=== PATIENT | female | born 1970 | race Caucasian/White ===

== ENCOUNTER → 2017-06-25 | Outpatient (CLI) | payer BC ==
[~2017-06-25] MED LIST: AMIT100T2 PO; CELE100C PO; CYAN10002 IM; DONE10TA12 PO; FENT1DIS85 TOP; HYDR-4383 PO; MULT1CAP6 PO; OXYC1TAB3 PO; PROP1TAB PO; SUMA6KIT2; TIZA4CAP PO; TOPI100T34 PO; VENL150C56 PO; VITACAP26 PO; VITAMIN D PO; [UNRECOGNIZED DRUG - OTHER] INJ
--- NOTE | 2017-06-25 16:19 | DIAGNOSTIC IMAGING REPORT ---
MRI OF THE RIGHT SHOULDER WITHOUT CONTRAST CLINICAL HISTORY: Right shoulder pain and decreased range of motion. COMPARISON STUDY: No previous studies for comparison. TECHNIQUE: Utilizing a 1.5 Becca magnet and dedicated coil, multiplanar, multi echo imaging of the right shoulder was performed without intravenous or intra-articular contrast. FINDINGS: This exam is mildly compromised by diminished ocqrtq-bb-[id number] ratio. There is moderate osteoarthritis of the right acromioclavicular joint with subacromial spurring and mild osteoarthritis of the glenohumeral joint. No fracture is identified. There is no suspicious marrow replacement. There is mild subchondral cystic change of the greater tuberosity. The proximal long head of biceps tendon is intact. The posterior superior glenoid labrum is slightly truncated and irregular. This favors a labral tear which is suboptimally assessed on this nonarthrogram exam. There is a moderate amount of fluid within the subacromial/subdeltoid bursa. There is tendinopathy with high-grade partial-thickness tear of the anterior fibers of distal supraspinatus without tendon retraction or muscular atrophy. There is mild tendinopathy of infraspinatus. There is no full-thickness rotator cuff tear identified on this exam although the amount of fluid within the subacromial/subdeltoid bursa raises the possibility of an occult full-thickness tear. No joint effusion is present. IMPRESSION: 1. Tendinopathy with high-grade partial-thickness tear of the distal anterior fibers of supraspinatus without tendon retraction or muscular atrophy. Moderate amount of fluid within the subacromial/subdeltoid bursa raises the possibility of an occult full-thickness rotator cuff tear. 2. Tendinopathy of infraspinous. 3. Moderate osteoarthritis of the acromioclavicular joint with subacromial spurring. 4. Truncated irregular posterior superior labrum which suggests a labral tear. Electronically signed by: Phillip Swanson M.D. 06/25/2017 4:18 PM Dictated Date/Time: 06/25/2017 4:11 PM
== END | disposition home or self-care (01) ==
LOC: C.MRI 14:22
PROVIDERS: ATTEND Physician Assistant Medical
DX: M79.1 Myalgia (principal); G89.4 Chronic pain syndrome; M25.511 Pain in right shoulder; M75.51 Bursitis of right shoulder

== ENCOUNTER → 2017-07-03 | Outpatient (CLI) | payer BC ==
--- NOTE | 2017-07-03 17:37 | DIAGNOSTIC IMAGING REPORT ---
LUMBAR SPINE MRI HISTORY: Low back pain. Radiating down right leg. HERNIATED LUMBAR INTERVERTEBRA DISC TECHNIQUE: Multiplanar multisequence MRI of the lumbar spine was performed without the use of contrast. COMPARISON: None. FINDINGS: For the purpose of the report the L5-S1 disc space will be located on axial image 27 of 30. There is 2 mm of anterolisthesis of L4 and L5. Remaining vertebral body heights are well aligned. There are few small Schmorl's nodes within the superior endplates of L1-L3. Mild disc space narrowing within the lower thoracic spine. A 6 mm hemangioma at the T10 vertebral body. The conus terminates at L1. Mild disc space narrowing at L2-L3 and L4-L5. Mild lumbar subcutaneous edema. A 1 cm T2 hyperintense, T1 hypointense lesion within the right kidney. This likely represents a cyst. Moderate facet degenerative changes at L4-5 and and mild facet degenerative changes at L5-S1. No fractures within the lumbar spine. L5-S1 disc desiccation. A 5 mm T2 hyperintense lesion within the lower pole the left kidney also favors a cyst. L1-L2: No significant central canal or neural foraminal narrowing. L2-L3: No significant central canal or neural foraminal narrowing. Tiny broad-based posterior disc bulge. L3-L4: No significant central canal or neural foraminal narrowing. L4-L5: Small broad-based posterior disc bulge with ligamentum and facet hypertrophy resulting and [id number] central canal and mild bilateral neural foraminal narrowing. There is also a 5 mm right-sided synovial cyst which results in mild impression upon the right posterior thecal sac. L5-S1: Small focal left paracentral disc extrusion demonstrating inferior subligamentous migration. This abuts but does not displace the transiting left S1 nerve root. No significant central canal narrowing. Mild bilateral neural foraminal narrowing due to the mild facet hypertrophy. IMPRESSION: 1. Ahbq-to-sqzoioiy central canal narrowing at L4-L5 as described above. There is associated grade I anterolisthesis at this level and moderate facet osteoarthritis. There is also a 5 mm right-sided synovial cyst which results in moderate impression upon the right posterior thecal sac. 2. Small left paracentral disc extrusion at L5-S1 demonstrating inferior subligamentous migration. This abuts but does not displace the transiting left S1 nerve root. Electronically signed by: Bharat Edmonds M.D. 07/03/2017 5:36 PM Dictated Date/Time: 07/03/2017 5:27 PM
== END | disposition home or self-care (01) ==
LOC: C.MRIBC 16:19
PROVIDERS: ATTEND Pain Medicine Interventional Pain Medicine
DX: M51.26 Other intervertebral disc displacement, lumbar region (principal)

== ENCOUNTER → 2017-07-24 | Day surgery (SDC) | payer BC ==
[2017-07-16 15:36] VITALS: Ht 165.1 cm; Wt 122.1 kg
[2017-07-16 15:47] LABS: MEAN CELL VOLUME 93.1 fL (80-100); MEAN CORPUSCULAR HEMOGLOBIN 30.6 pg (25-34); MEAN CORPUSCULAR HGB CONC 32.9 g/dl (32-36); MEAN PLATELET VOLUME 9.5 fL (7.4-10.4); PLATELET COUNT 416 K/uL (130-400); RED BLOOD COUNT 4.51 M/uL (4.2-5.4); WHITE BLOOD COUNT 9.43 K/uL (4.8-10.8)
[2017-07-16 16:00] LABS: BUN/CREATININE RATIO 7.5 (10-20); CREATININE 1.1 mg/dl (0.60-1.20); POTASSIUM 4.2 mmol/L (3.5-5.1)
[2017-07-16 16:01] LABS: INR 0.9 (0.9-1.1); PARTIAL THROMBOPLASTIN RATIO 1.1
--- NOTE | 2017-07-16 16:14 | PAT Medication Instructions ---
Service Date Jul 16, 2017. Current Home Medication List Amitriptyline Hcl (Elavil), 100 MG PO QPM Donepezil Hydrochloride (Aricept), 10 MG PO QAM Fentanyl (Fentanyl), 1 DOSE TOP Q2DAYS Multiple Vitamins W/ Minerals (Multi For Her), 1 TAB PO QAM Oxycodone Ir (Roxicodone Ir), 10 MG PO 5XDAY Propranolol (Inderal), 60 MG PO TID Tizanidine (Zanaflex), 4 MG PO TID PRN for RN Topiramate (Topamax), 100 MG PO QPM Venlafaxine Hcl (Effexor Extended Rel), 150 MG PO QAM Vitamins C & E (Vitamin C), 1 TAB PO QAM [Vitamiin B12], 1 DOSE INJ [id number] [Vitamin D], 2 TAB PO QAM Medication Instructions For Your Scheduled Surgery -Continue as directed: [Vitamiin B12], 1 DOSE INJ [id number] - Hold the following medications the morning of surgery: [Vitamin D], 2 TAB PO QAM Vitamins C & E (Vitamin C), 1 TAB PO QAM Venlafaxine Hcl (Effexor Extended Rel), 150 MG PO QAM Tizanidine (Zanaflex), 4 MG PO TID PRN for RN Multiple Vitamins W/ Minerals (Multi For Her), 1 TAB PO QAM Fentanyl (Fentanyl), 1 DOSE TOP Q2DAYS - Take the following medications the morning of surgery with a sip of water: Propranolol (Inderal), 60 MG PO TID Oxycodone Ir (Roxicodone Ir), 10 MG PO 5XDAY (can be taken up to four hours before surgery) Donepezil Hydrochloride (Aricept), 10 MG PO QAM - Take the following medications as scheduled the night before surgery: Topiramate (Topamax), 100 MG PO QPM Propranolol (Inderal), 60 MG PO TID Amitriptyline Hcl (Elavil), 100 MG PO QPM Tizanidine (Zanaflex), 4 MG PO TID PRN for RN If you have any questions please call us at [phone] or [phone] or [phone]
--- NOTE | 2017-07-16 17:02 | DIAGNOSTIC IMAGING REPORT ---
CHEST PREADMISSION(PA/LAT) CLINICAL HISTORY: Preoperative chest COMPARISON STUDY: No previous studies for comparison. FINDINGS: The cardiac and mediastinal contours are normal. There is no evidence of focal pulmonary consolidation. There is no evidence of failure. No pleural effusions are visualized.[ IMPRESSION: No active disease in the chest. Electronically signed by: Justin Spain M.D. 07/16/2017 5:00 PM Dictated Date/Time: 07/16/2017 5:00 PM
[~2017-07-24] VITALS: Ht 165.1 cm; Wt 122.1 kg
[~2017-07-24] MED LIST changes: +ATROPINE SULFATE 0.1 MG/ML 5ML SYR IV PRN; +BUPIVACAINE/EPINEPHRINE 0.25% 1:200,000 30 ML VIAL ONE; +CEFAZOLIN 3000MG IV PUSH 15 ML IV SCH; -CELE100C PO; -CYAN10002 IM; +DEXAMETHASONE SOD INJ 4 MG/ML VIAL ONE; +EpHEDrine SULFATE INJ 50 MG/ML AMP IV PRN; +EpINEphrine INJ 1MG/ML AMP 1 MG/ML AMP ONE; +FENTANYL CITRATE INJ 50 MCG/1 ML 2 ML VIAL IV PRN; +FENTANYL CITRATE INJ 50 MCG/1 ML 2 ML VIAL ONE; -HYDR-4383 PO; +HYDROmorphone INJ 1 MG/ML SYR IV PRN; +KETOROLAC TROMETHAMINE 30 MG/ML VIAL IV. PRN; +LACTATED RINGER'S 1000ML 1,000 ML IV SCH; +LIDOCAINE HCL 1% MPF 5 ML VIAL ONE; +LIDOCAINE HCL 2% 2 ML VIAL (20MG/ML) ONE; +MIDAZOLAM HCL 1 MG/ML 2ML VIAL ONE; +ONDANSETRON INJ 2 MG/ML 2 ML VIAL IV PRN; +ONDANSETRON INJ 2 MG/ML 2 ML VIAL ONE; +OXYCODONE/ACETAMINOPHEN 5-325 TAB PO PRN; +PROMETHAZINE HCL INJ 12.5 MG in SODIUM CHLORIDE 0.9% 50ML 50 ML IV PRN; +PROPOFOL IV EMULSION 10 MG/ML 20 ML VIAL IV ONE; +ROCURONIUM BROMIDE 10 MG/ML 5 ML VIAL IV ONE; +ROPIVACAINE 0.5% 5 MG/ML 30 ML VIAL ONE; +SODIUM CHLORIDE 0.9% 1000ML 1,000 ML IV SCH; +SUCCINYLCHOLINE CHLORIDE 20 MG/ML 10 ML VIAL IV ONE; -SUMA6KIT2
--- NOTE | 2017-07-24 07:00 | History & Physical Bridge - SC ---
H&P Re-Evaluation Bridge Note: I have examined the patient, reviewed the History & Physical and in the interval since the performance of the History & Physical I have noted the following changes of clinical significance: No changes noted
--- NOTE | 2017-07-24 09:44 | Discharge Instructions-SurgCtr ---
Discharge Instructions Date of Service Jul 24, 2017. Visit Reason for Visit: Right Shoulder Impingement Syndrome, Pain Discharge Discharge Diagnosis / Problem: SAME ABOVE Discharge Goals Goal(s): Decrease discomfort, Improve function Medications Stopped Medications Name(s): Only took two medications with sips of water this morning. Restart Stopped Medication(s): FRANDY RESTART 07/24/2017 Activity Recommendations Activity Limitations: as noted below Lifting Limitations: until after follow-up appointment Exercise/Sports Limitations: until after follow-up appointment Shower/Bathe: tomorrow Anesthesia . Post Anesthesia Instructions: If you have had General Anesthesia or IV Sedation: * Do not drive today. * Resume driving when surgeon permits. * Do not make important decisions or sign legal documents today. * Call surgeon for: 1. Temperature elevations greater than 101 degrees F. 2. Uncontrollable pain. 3. Excessive bleeding. 4. Persistent nausea and vomiting. 5. Medication intolerance (nausea, vomiting or rash). * For nausea and vomiting use only clear liquids such as: tea, soda, bouillon until nausea subsides, then gradually increase diet as tolerated. * If you have any concerns or questions, call your surgeon's office. If physician is unavailable and it is an emergency, call 911 or go to the nearest emergency room. . Instructions / Follow-Up Instructions / Follow-Up MEDICATIONS: * Resume previous medications unless instructed otherwise by your surgeon. * Always take pain medication on a full stomach or with food to avoid upset stomach. * Do not drink alcohol or drive while taking narcotics. * Ibuprofen or Tylenol may be taken if narcotic not needed. SPECIAL CARE INSTRUCTIONS: __ None _X_ Keep extremity elevated and iced x 48 hours; apply ice 20-30 minutes 8-10 times/day. May remove at night. _X_ Sling (MAY REMOVE AFTER 48 HOURS ONLY TO SHOWER AND FOR THERAPY) _X_24 hrs/day __ Remove at night __ Shoulder Immobilizer __ 24 hrs/day __ Remove at night _X_ Dressing __ Maintain until seen in office, may shower with plastic over site _X_ Remove dressings in 24-48 hours and then may shower _X_ Cover incisions with band-aids after showering __ Do not remove steri-strips Call physician if chills or temperature rises above 102 degrees or pain unrelieved by prescribed pain medications at . . Diet Recommendations Home Diet: no limitations Procedures Procedures Performed: Right Shoulder Arthroscopy, Biceps Tenotomy, Acromioplasty, Small Rotator Cuff Tear Pending Studies Studies pending at discharge: no Work Instructions Return To Work: after follow-up Medical Emergencies . Who to Call and When: Medical Emergencies: If at any time you feel your situation is an emergency, please call 911 immediately. . Non-Emergent Contact Non-Emergency issues call your: Primary Care Provider Call Non-Emergent contact if: you have a fever . . "Provider Documentation" section prepared by Gary Scott. .
[2017-07-24 10:13] VITALS: BP 121/81; PULSE 59; O2SAT 99
--- NOTE | 2017-07-24 10:14 | Anesthesia Progress Nt - [facility] ---
Anesthesia Post Op Note Date & Time Jul 24, 2017 at 10:13 Vital Signs Pain Intensity: 0 Vital Signs Past 12 Hours Date Time Temp Pulse Resp B/P (MAP) Pulse Ox O2 Delivery O2 Flow Rate FiO2 07/24/17 09:40 36.0 71 16 134/81 (98) 95 Room Air 07/24/17 08:36 101/95 07/24/17 08:35 73 25 100 07/24/17 08:35 72 07/24/17 08:30 69 23 135/87 100 07/24/17 08:30 70 07/24/17 08:25 72 07/24/17 08:25 72 20 136/93 100 07/24/17 08:24 71 07/24/17 08:24 71 19 100 07/24/17 08:21 132/90 07/24/17 08:19 73 07/24/17 08:19 73 22 100 07/24/17 08:15 148/94 07/24/17 08:14 66 13 141/81 100 07/24/17 08:14 66 07/24/17 08:09 9 07/24/17 08:09 70 9 07/24/17 07:41 36.7 63 18 137/102 (114) 98 Room Air Notes Mental Status: alert / awake / arousable, participated in evaluation Pt Amnestic to Procedure: Yes Nausea / Vomiting: adequately controlled Pain: adequately controlled Airway Patency, RR, SpO2: stable & adequate BP & HR: stable & adequate Hydration State: stable & adequate Anesthetic Complications: no major complications apparent Doing well, pain controlled, no n/v. VSS. Ready for d/c
--- NOTE | 2017-07-24 13:43 | [facility] Post Operative Brief Note ---
Immediate Operative Summary Operative Date Jul 24, 2017. Pre-Operative Diagnosis Right Shoulder Impingement Syndrome, Pain Post-Operative Diagnosis Same Procedure(s) Performed Right Shoulder Arthroscopy, Biceps Tenotomy, Acromioplasty, Small Rotator Cuff Tear Surgeon Dr. Andrew Director Chemistry Surgeon(s) Shiloh Scott PA-C Estimated Blood Loss 5 ml Findings as above Specimens None Complication(s) None Disposition Recovery Room / PACU
--- NOTE | 2017-07-24 19:45 | OPERATIVE REPORT ---
DATE OF OPERATION: 07/24/2017 PREOPERATIVE DIAGNOSIS: Severe external impingement, and a small rotator cuff tear of the right shoulder. POSTOPERATIVE DIAGNOSIS: Same. PROCEDURE: Right shoulder diagnostic arthroscopy with limited debridement, acromioplasty, small rotator cuff repair, biceps tenotomy and distal clavicle resection to include coplaning of the undersurface of the clavicle. SURGEON: Dr. Chester Andrew. SEPTIC TANK SERVICER: Eric Scott PA-C, whose assistance was necessary for positioning of the arm and helping with instrumentation. ANESTHESIA: Sedation with a right interscalene nerve block. COMPLICATIONS: None. CONDITION: Stable to PACU. INDICATIONS: Blanche is a pleasant 47-year-old female who I did a left shoulder arthroscopy on 3 years ago. She did well with that and unfortunately was having similar symptoms in her right shoulder. MRI and clinical examination were diagnostic for severe external impingement and biceps tendonitis. After failing conservative treatment, she elected to undergo arthroscopy. DESCRIPTION OF THE PROCEDURE: On 07/24/2017, she arrived at [facility] for the above procedure. She was seen in the preoperative holding area and the operative extremity was identified and signed. She was given a preoperative antibiotic and a right interscalene nerve block. She was taken back to the operating room, laid on the table in supine position, given basic sedation. She was then put into the beachchair position. The right shoulder was prepped and draped in sterile fashion. Time-out was done and the patient and operative extremity was properly identified. A scope was introduced in the posterior portal. Diagnostic arthroscopy showed no cartilage damage to the humeral head or the glenoid. There was a little fraying of the anterior labrum and part of the labrum was displaced into the joint. The supraspinatus, infraspinatus, teres minor and subscapularis all looked fine from the articular side. The biceps tendon was slightly frayed and there was some tearing of the biceps tuberosity. An anterior portal was made. A shaver was used to do a limited debridement of the intraarticular structures as well as removing the displaced labral fragments. The biceps tendon was arthroscopically tenotomized. The scope was then put into the subacromial space. A lateral portal was made. A shaver was used to do a complete subacromial and subdeltoid bursectomy. An ablator was used to tease the coracoacromial ligament off the undersurface of the acromion and a 5-0 nura was used to complete an acromioplasty of a large Bigliani type 3 acromion. A shaver was used to remove any excess debris and the bursal side of the rotator cuff was examined extensively. There was an area of tearing on the bursal side that involved about 80% of the tendon thickness. An additional anterolateral portal was made and a single Heike cannula was placed in that lateral portal. The tuberosity was prepared with a ring curette. The rotator cuff tear was then fixed with an Arthrex modified SpeedBridge configuration using a single 4.75 mm BioComposite SwiveLock suture anchor placed on the medial row. This was loaded with FiberTapes. The FiberTapes were passed through the tendon at the anticipated articular margin. The 2 FiberTapes were then brought down to a single lateral row SwiveLock suture anchor. This gave a nice knotless repair. Multiple pictures were taken. Attention was then turned to the distal clavicle. There were some large osteophytes hanging on the undersurface of the clavicle. A 5-0 nura was used to do a small distal clavicle resection to remove those osteophytes and open up the supraspinatus outlet. A shaver was used to remove any excess debris. Final diagnostic arthroscopy showed no additional pathology. The scope was placed back into the glenohumeral joint and no additional pathology was identified. Arthroscopic instruments were removed from the shoulder. Portal sites were closed with 3-0 nylon. She was then placed in a soft dressing and a regular arm sling. She was then extubated, transferred to a litter and taken to the postanesthesia care unit in stable condition. She tolerated the procedure well. I attest to the content of the Intraoperative Record and any orders documented therein. Any exceptions are noted below. JUANITA
== END | disposition home or self-care (01) ==
LOC: X.SURG 07:28
PROVIDERS: ATTEND Orthopaedic Surgery
DX: M75.41 Impingement syndrome of right shoulder (principal); M75.111 Incomplete rotator cuff tear or rupture of right shoulder, not specified as traumatic; D64.9 Anemia, unspecified; J45.909 Unspecified asthma, uncomplicated

== ENCOUNTER → 2017-09-17 | Outpatient (CLI) | payer BC ==
[~2017-09-17] MED LIST changes: -ATROPINE SULFATE 0.1 MG/ML 5ML SYR IV PRN; -BUPIVACAINE/EPINEPHRINE 0.25% 1:200,000 30 ML VIAL ONE; -CEFAZOLIN 3000MG IV PUSH 15 ML IV SCH; -DEXAMETHASONE SOD INJ 4 MG/ML VIAL ONE; -EpHEDrine SULFATE INJ 50 MG/ML AMP IV PRN; -EpINEphrine INJ 1MG/ML AMP 1 MG/ML AMP ONE; -FENTANYL CITRATE INJ 50 MCG/1 ML 2 ML VIAL IV PRN; -FENTANYL CITRATE INJ 50 MCG/1 ML 2 ML VIAL ONE; -HYDROmorphone INJ 1 MG/ML SYR IV PRN; -KETOROLAC TROMETHAMINE 30 MG/ML VIAL IV. PRN; -LACTATED RINGER'S 1000ML 1,000 ML IV SCH; -LIDOCAINE HCL 1% MPF 5 ML VIAL ONE; -LIDOCAINE HCL 2% 2 ML VIAL (20MG/ML) ONE; -MIDAZOLAM HCL 1 MG/ML 2ML VIAL ONE; -ONDANSETRON INJ 2 MG/ML 2 ML VIAL IV PRN; -ONDANSETRON INJ 2 MG/ML 2 ML VIAL ONE; -OXYCODONE/ACETAMINOPHEN 5-325 TAB PO PRN; -PROMETHAZINE HCL INJ 12.5 MG in SODIUM CHLORIDE 0.9% 50ML 50 ML IV PRN; -PROPOFOL IV EMULSION 10 MG/ML 20 ML VIAL IV ONE; -ROCURONIUM BROMIDE 10 MG/ML 5 ML VIAL IV ONE; -ROPIVACAINE 0.5% 5 MG/ML 30 ML VIAL ONE; -SODIUM CHLORIDE 0.9% 1000ML 1,000 ML IV SCH; -SUCCINYLCHOLINE CHLORIDE 20 MG/ML 10 ML VIAL IV ONE
--- NOTE | 2017-09-18 05:56 | PAP/PSG TECHNICIAN REPORT ---
[facility] Extractor Operator Helper Polysomnogram Report Study name: None Report date: 09/18/2017 Study date: 09/17/2017 Referring Physician: MIKHAIL Salgado Name: DALLAS CHOWDHURY Interpreting Physician: Abe Mcgarry M.D. Date of : 1970 Extractor Operator Helper: Cammie Fletcher [facility]. Sex: Female Age: 47 StudyType: PSG Weight: 266 lbs Height: 47 years, Height 5' 4.5" BMI: 44.95 Medications: Tizanidine 4mg, Propranolol 20 mg, Venlafaxine 150 mg, Topiramate 100 mg, Amitriptyline 100 mg, Prevident 5000, Lidocaine, Fentanyl 37.5, Oxycodone 10 mg, Vitamin B-12, Vitamin C, Vitamin D-3, Aricept, Aspirin 81 mg, Multi Vitamin Patient History 47 yr. old female here tonight for an updated Bi-PAP titration study in room 8. Patient is currently on and is experiencing significant aerophagia. Parameters Monitored NPSG: E1-M2, E2-M1, Fp1-M2, Fp2-M1, F3-M2, F4-M2, F4-M1, C3-M2, C4-M2, C4-M1, O1-M2, O2-M2, O2-M1, T3-M2, T4-M1, P3-M2, P4-M1, CHIN1, CHIN2, HR, EKG, Legs, PFLOW, SNOR, FLOW, CFLOW, Tidal Volume, THOR, ABDO, SpO2, PLTH, CPRESS, ETCO2 Wave, ETCO2, pH Sleep Architecture Sleep Stages Time at Lights Off 9:07:24 PM STAGES Time (min.) TST (%) Time at Lights On 5:41:24 AM Wake 26.5 -- Total Recording Time (TRT) 514.00 min. N1 19.5 4 Total Sleep Period (TSP) 512.0 min. N2 358.5 74 Total Sleep Time (TST) 487.5min. N3 61.5 13 Awake Time 26.5 min. REM 48.0 10 Wake after Sleep Onset 24.5 min. Sleep Efficiency (SE) 95 % Sleep Onset Latency (SOUTH) 2.0 min. Number of Stage 1 Shifts None Awakenings 12 Stage Changes 67 Number of REM periods 1 REM 48.0 10 REM Latency 300.5 min. NREM 439.5 90 Body Position Analysis Supine Right Left Side Prone Vertical Total Sleep Time (min.) 359.9 0.0 145.5 145.50 0.0 0.9 Total Sleep Time (%) 70% 0% 30% 30 0% N/A% Total Sleep Time REM (min.) 48.0 0.0 0.0 None 0.0 0.0 Total Sleep Time NREM (min.) 294.0 0.0 145.5 None 0.0 0.0 Intermittent Wake (min.) 17.9 0.0 7.7 None 0.0 0.9 Total Sleep Period (%) 70% None None None None None Arousals Myoclonus (PLM) * Events Count Index Events Count Index Spontaneous 13 2 Events Awake (PLMW) 23 52.1 Respiratory 2 0.4 Events Asleep w/ Arousal (PLMA) 5 0.6 PLM 5 1 Events Asleep w/o Arousal (PLMS) 14 1.7 Snoring 7 1 Total Asleep 19 2.3 Total 27 3 Total 42 5 Respiratory Analysis * CA OA MA CH H RERA Total Count 19 1 0 0 43 1 63 Index 2.3 0.1 0.0 0 5.3 0 7.9 Mean Duration 14.2 32.7 0.0 0.00 34.8 33.4 28.7 Longest Duration 21.9 32.7 0.0 0.00 0.0 33.4 87.4 Respiratory Event Summary Total Supine ~Supine Right Left Prone REM NREM Apneas Count 20 20 0 N/A 0 N/A 0 20 Index 2.5 4 0 N/A 0.0 N/A 0 3 Hypopneas (4% Desat) Count 43 39 4 N/A 4 N/A 7 36 Index 5.3 6.8 2 N/A 1.6 N/A 8.8 4.9 Apneas & All Hypopneas Count 63 59 4 N/A 4 N/A 7 56 Index 7.8 10 2 N/A 2 N/A 8.8 7.6 Respiratory Events (Extracorporeal Circulation Specialist+All Hyp+RERA) Count 63 60 4 N/A 4 N/A 7 56 Index 7.9 11 2 N/A 1.6 N/A 8.8 7.8 Respiratory Related Arousal Count 2 60 0 N/A 0 N/A 0 3 Index 0.4 1 0 N/A 0 N/A 0 0 Snoring Analysis Supine Right Left Prone REM NREM Total Snore duration 2.5 min Snores count 117 N/A 17 N/A 1 133 134 Snore mean duration 1.1 Sec Snores index 21 N/A 7 N/A 1.3 18.2 16.5 TST with snoring (%) 0.5% Desaturation Event Summary: Minimum %SpO2 Event Count Mean/Min/Max Duration(sec.) Desaturation Index % Time In Bed > 90 66 29.7 / 7.0 / 59.8 10.6 73.7 86 - 90 4 31.2 / 16.5 / 48.7 1.8 26.3 81 - 85 0 N/A 0.0 0.1 76 - 80 0 N/A 0.0 0.0 71 - 75 0 N/A 0.0 0.0 66 - 70 0 N/A 0.0 0.0 61 - 65 0 N/A 0.0 0.0 56 - 60 0 N/A 0.0 0.0 51 - 55 0 N/A 0.0 0.0 < 50 0 N/A 0.0 0.0 Total REM NREM Awake <50% 0.0 min. 0.0 min. 0.0 min. 0.0 min. 51 - 60% 0.0 min. 0.0 min. 0.0 min. 0.0 min. 61 - 70% 0.0 min. 0.0 min. 0.0 min. 0.0 min. 71 - 80% 0.0 min. 0.0 min. 0.0 min. 0.0 min. 81 - 90% 133.0 min. 0.0 min. 131.7 min. 1.3 min. 91 - 100% 371.9 min. 47.8 min. 307.8 min. 16.3 min. Average 93 96 93 95 Minimum SpO2 79 91 84 79 Desaturation Event Index 7.8 8.8 7.0 20.4 # Desat. Events below 89% 10 N/A 9 1 Time(%) with Saturation below 89% 7.0 0.0 6.9 0.1 Time(min.) with Saturation below 89% 35.2 0.0 34.8 0.4 Time (mins) REM (mins) NREM (mins) % of TST SpO2 Below 90% 16 N/A N16 18.9 SpO2 Below 88% 4 0 0 1 Heart Rate Analysis Min (bpm) Max (bpm) Average (bpm) Awake 51 115 60 NREM 54 71 61 REM 50 69 62 Overall 50 71 61 Supplemental O2 Values Minimum O2 level: None Value Start Time End Time Extractor Operator Helper Comments MS. Chowdhury left and supine positions. No cardiac arrhythmia. PLMs noted. No bruxism noted. PAP initiated at an IPAP of +11 CMH2O and an EPAP of +5 CMH2O up-titrated to an optimal level of: IPAP +47MSI1A, EPAP + 8 CMH20 BiFlex with a rate of12 BPM and 1 lpm 02, which nearly eliminated all respiratory events and snoring. At 5;07 am MS. Chowdhury was under 89% for 31.1 minutes on a pressure of 17/8 and her AHI was 1.7, she was on 17/8 for 160.6 minutes. A small Connolly and [employer] Simplus, was used during titration. MS. Chowdhury awoke to use the restroom once during the night. MS. Chowdhury stated,I slept great. The final report will be interpreted and signed by a sleep physician. The completed physician report will then be placed in the patient medical record. Therapy Event: Therapy (cm H20) 0 8/4 11/6 12/6 13/7 14/7 15/7 16/8 17/8 Total Time at Pressure (min.) 3.1 25.6 52.3 51.7 32.6 53.4 29.5 66.9 199.1 TST at Pressure (min.) 1.1 25.6 52.3 49.7 30.6 52.4 29.0 65.9 181.1 # Periods 1 1 1 1 1 1 1 1 1 Sleep Onset (min.) 2.0 0.0 0.0 0.0 0.0 0.0 0.0 0.0 0.0 REM Onset (min.) N/A N/A N/A N/A N/A N/A N/A 54.4 0.0 Sleep Efficiency % 35 100 100 96 93 98 98 98 91 Wakefulness (%) 64.5 0.0 0.0 3.9 6.1 1.9 1.7 1.5 9.0 Wakefulness (min.) 2.0 0.0 0.0 2.0 2.0 1.0 0.5 1.0 18.0 NREM 1 (%) 35.5 13.3 0.0 2.9 6.1 5.6 3.4 2.2 3.0 NREM 1 (min.) 1.1 3.4 0.0 1.5 2.0 3.0 1.0 1.5 6.0 NREM 2 (%) 0.0 86.7 79.9 51.6 87.7 92.5 64.4 62.0 65.1 NREM 2 (min.) 0.0 22.2 41.8 26.7 28.6 49.4 19.0 41.4 129.5 NREM 3 (%) 0.0 0.0 20.1 41.6 0.0 0.0 30.5 15.7 5.0 NREM 3 (min.) 0.0 0.0 10.5 21.5 0.0 0.0 9.0 10.5 10.0 REM (%) 0.0 0.0 0.0 0.0 0.0 0.0 0.0 18.6 17.9 REM (min.) 0.0 0.0 0.0 0.0 0.0 0.0 0.0 12.4 35.6 # Arousals 0 1 6 4 1 4 1 5 5 Arousal Index 0.0 2.3 6.9 4.8 2.0 4.6 2.1 4.6 1.7 # Snore 0 19 79 6 4 4 2 2 18 Snore Index 0.0 44.5 90.6 7.2 7.9 4.6 4.1 1.8 6.0 AHI 0.0 11.7 3.4 6.0 29.4 18.3 8.3 6.4 2.7 AHI Supine 0.0 11.7 3.4 6.0 29.4 18.3 8.3 6.4 6.7 AHI Non-Supine N/A N/A N/A N/A N/A N/A N/A N/A 1.6 NREM AHI 0.0 11.7 3.4 6.0 29.4 18.3 8.3 4.5 1.6 REM AHI N/A N/A N/A N/A N/A N/A N/A 14.5 6.7 RDI 0.0 11.7 3.4 7.2 29.4 18.3 8.3 6.4 2.7 # Obstructive 0 0 0 0 0 0 1 0 0 # Central Ap 0 0 0 4 8 7 0 0 0 # Mixed 0 0 0 0 0 0 0 0 0 # Hypopneas 0 5 3 1 7 9 3 7 8 RERAS 0 0 0 1 0 0 0 0 0 Total Respiratory Events 0 5 3 6 15 16 4 7 8 Time Below SpO2 89.00% (min.) 0.0 0.0 0.3 0.0 0.0 0.0 0.4 0.6 33.6 Mean NREM SpO2 (%) 94 95 92 94 96 96 95 95 89 Mean REM SpO2 (%) N/A N/A N/A N/A N/A N/A N/A 96 96 Mean Sleep SpO2 (%) 94 95 92 94 96 96 95 95 91 Min NREM SpO2 (%) 92 92 88 89 90 89 86 84 84 Min REM SpO2 (%) N/A N/A N/A N/A N/A N/A N/A 92 91 Position Supine (min.) 1.1 25.6 52.3 49.7 30.6 52.4 29.0 65.9 35.6 Position Non-supine (min.) 0.0 0.0 0.0 0.0 0.0 0.0 0.0 0.0 145.5 LM Index Sleep 0.0 9.4 5.7 2.4 2.0 1.1 0.0 0.9 1.7 LM Index NREM 0.0 9.4 5.7 2.4 2.0 1.1 0.0 1.1 2.1 LM Index REM N/A N/A N/A N/A N/A N/A N/A 0.0 0.0 Mean Heart Rate (bpm) 60 64 62 59 58 59 58 59 62 Min Heart Rate (bpm) 59 60 56 54 54 55 55 54 50
--- NOTE | 2017-09-19 14:02 | POLYSOMNOGRAPH REPORT ---
CLINICAL DATA: A 47-year-old female with BMI of 45 referred by MIKHAIL Sotelo for BiPAP titration study. She currently is on BiPAP 25/18 and is experiencing aerophagia. SLEEP ARCHITECTURE: Total sleep period was 512 minutes. Total sleep time was 487.5 minutes divided between 439.5 minutes of non-REM sleep and 48 minutes of REM sleep. Sleep onset latency was 2 minutes. REM latency was 300.5 minutes. Sleep efficiency was 95%. Wake after sleep onset was 24.5 minutes. Sleep consisted of stage N1 4%, stage N2 74%, stage N3 30%, and REM 10%. AROUSAL DATA: Twenty-seven arousals were recorded for an index of 3 per hour. PLM DATA: Nineteen limb movements during sleep were noted for an index of 2.3 per hour with arousal index of 0.6 per hour. RESPIRATORY DATA: AHI was 7.8. There were 19 central apneic episodes and 1 obstructive apneic episode. The longest duration of apnea was 32.7 seconds. There were 43 hypopneic episodes with a mean duration of 34.8 seconds. OXIMETRY DATA: Transient hypoxemia was seen. Oxygen everardo was 84% during non-REM sleep. Mean saturation was 93%. Time below 88% was 4 minutes. EKG: Heart rates ranged from 54-71 beats per minute. No arrhythmias were noted. INS[employer]ED [employer]S'S COMMENTS AND TREATMENT SUMMARY: The patient slept in the left and supine positions. The patient used a small [employer] Sim[employer] mask. She was started on BiPAP 11/5 and was titrated up to a final setting of BiPAP 17/8, Biflex 2 with a backup rate of 12 breaths per minute and 1 liter per minute oxygen. Oxygen was added because her AHI was 1.7 on BiPAP 17/8 for over 160 minutes and the patient continued to have oxygen desaturation. At her final pressure setting, the patient slept for 181 minutes with an AHI of 2.7. IMPRESSION: Obstructive sleep apnea corrected with BiPAP 17/8, backup rate of 12 breaths per minute with 1 liter per minute of oxygen. RECOMMENDATIONS: The patient's BiPAP should be adjusted to the above noted settings. She should have oxygen 1 liter per minute added as well as back-up rate for her BiPAP machine. Followup within 90 days after these changes are made to document efficacy and compliance is recommended. [facility]
== END | disposition home or self-care (01) ==
LOC: C.NEUR 20:00
PROVIDERS: ATTEND Nurse Practitioner Family
DX: F45.8 Other somatoform disorders (principal); G47.33 Obstructive sleep apnea (adult) (pediatric); G47.31 Primary central sleep apnea